=== PATIENT | male | born 1935 | race Caucasian/White ===

== ENCOUNTER → 2016-08-07 | Outpatient (CLI) | payer MEDICARE, OTHER ==
[~2016-08-07] MED LIST: AMIODARONE HCL200 MG PO; ASPIRIN EC81 MG PO; ELIQUIS2.5 MG PO; FLOMAX0.4 MG PO; LANOXIN (DIGI125 MCG PO; LASIX20 MG PO; LEVOTHROID (S100 MCG PO; LIPITOR20 M1 PO; LOPRESSOR100 MG PO; MAGOX 400400 MG PO; NORCO 5-325 TA1 EACH PO; TOPROL XL100 MG PO; ZESTRIL2.5 MG PO
== END | disposition disaster alternative care site (69) ==
LOC: LNHI 16:36
DX: R53.83 Other fatigue (principal); Z79.899 Other long term (current) drug therapy

== ENCOUNTER → 2016-09-13 | Day surgery (SDC) | payer MEDICARE, OTHER ==
[~2016-09-13] VITALS: Ht 185.4 cm; Wt 93.9 kg
--- NOTE | ~2016-09-13 | OR ---
PATIENT'S NAME: MADELINE FIERRO [facility] AGE: 81 Y [address] ROOM: [place] [id number] LOCATION: [facility] [place] DATE: 09/13/2016 OR/Procedure Report DISCHARGE DATE: FAMILY PHYSICIAN: Domi Rios MD ATTENDING PHYSICIAN: Queenie Peters SURGEON: Queenie Peters MD CYBER SECURITY: DATE OF PROCEDURE: 09/13/2016 DESCRIPTION: This is an 81-year-old gentleman with ischemic cardiomyopathy, indwelling BIV-ICD, and recurrent persistent atrial fibrillation. The patient is on amiodarone. He failed to convert. So, elective cardioversion using the indwelling device was planned. Risks, benefits, and alternatives were explained to the patient and his , and they agreed to proceed. He was brought to the procedural unit. The [employer] disability representative was present. Anesthesia provided 70 mg of propofol. When the patient was deeply asleep, we delivered 41 joules shock synchronized, which promptly converted the patient from atrial fibrillation to sinus rhythm and atrioventricular pacing. CONCLUSION: Successful cardioversion from atrial fibrillation to sinus rhythm. QUEENIE PETERS MD PE/modl /[id number] d: 09/13/16 1413 t: 09/14/16 1757, OPERATIVE SUMMARY
== END | disposition disaster alternative care site (69) ==
LOC: GPOC 09-12 17:00 → GSDC 08:00 → GPOC 17:00 → GSDC 17:00
PROC: 5A2204Z Restoration of Cardiac Rhythm, Single (ICD-10-PCS; principal; 2016-09-13)
DX: I48.1 Persistent atrial fibrillation (principal); E78.00 Pure hypercholesterolemia, unspecified; I25.10 Atherosclerotic heart disease of native coronary artery without angina pectoris; I11.0 Hypertensive heart disease with heart failure; I50.9 Heart failure, unspecified; I25.5 Ischemic cardiomyopathy; M19.90 Unspecified osteoarthritis, unspecified site; Z90.49 Acquired absence of other specified parts of digestive tract; Z98.41 Cataract extraction status, right eye; Z98.42 Cataract extraction status, left eye; Z98.890 Other specified postprocedural states
CPT/HCPCS: J2001; J7030